=== PATIENT | male | born 1965 | race American Indian/Alaskan Native ===

== ENCOUNTER 2017-07-10 21:17 | Emergency (ER) | payer MEDICARE ==
--- NOTE | 2017-07-10 21:49 | Emergency Department Report ---
HPI - General Time Seen by Provider: 07/10/17 21:45 - HPI HPI: Room 20 Patient is an adult male presented with a chief complaint respiratory arrest. Per EMS the patient was complaining of shortness of breath at home was attempting to self medicate with a nebulizer. EMS arrived on scene finding the patient apneic without a gag reflex lying on the floor. The patient was intubated by EMS and while being transported to the ED approximately 7 minutes prior to arrival the patient lost a pulse and entered PEA. Upon arrival to the ED the patient was found to be in asystole and ACLS protocols were continued. There was no return of spontaneous circulation Location: Cardiovascular system, lungs Duration: [see above] Quality: Apneic Severity: Severe Modifying factors: [see above] Context: [see above] Mode of transportation: EMS ED Past Medical Hx - Past Medical History Hx Hypertension: Yes Hx Asthma: Yes - Surgical History Additional Surgical History: Unknown - Family History Family history: no significant - Social History Smoking Status: Unknown if ever smoked ED Review of Systems ROS: Stated complaint: CARDIAC ARREST Other details as noted in HPI Comment: Unobtainable due to pts medical conditions Physical Exam - Physical Exam Physical Exam: GENERAL: The patient is well-developed well-nourished male lying on stretcher receiving chest compressions from EMS and being bagged via ET tube. [] HEENT: Normocephalic. Atraumatic. NECK: Trachea midline CHEST/LUNGS: No spontaneous respirations. Breath sounds with wheezing auscultated bilaterally with bagging HEART/CARDIOVASCULAR: No heart sounds. Asystole on monitor ABDOMEN: Abdomen is soft SKIN: There is no diaphoresis. NEURO: GCS 3T MUSCULOSKELETAL:There is no evidence of acute injury. ED Medical Decision Making - Differential Diagnosis respiratory arrest Critical care attestation.: If time is entered above; I have spent that time in minutes in the direct care of this critically ill patient, excluding procedure time. ED Disposition Clinical Impression: Respiratory arrest Disposition: DC-20 Is pt being admited?: No Does the pt Need Aspirin: No Condition: Poor Time of Disposition: 21:49 (patient )
== END 2017-07-10 22:45 ==
LOC: ED 21:17
DX: R09.2 Respiratory arrest (principal); I10 Essential (primary) hypertension
CPT/HCPCS: 82962; 92950; 99285